=== PATIENT | female | born 1990 | race Caucasian/White ===

== ENCOUNTER → 2016-06-20 | Outpatient (CLI) | payer BC ==
[~2016-06-20] MED LIST: ACET-1256 PO; ACET-749 PO; ALBUAER19 INH; PRENTAB26 PO; VNTHFA/IN INH
[2016-06-20 18:13] LABS: URINE APPEARANCE CLEAR (CLEAR); URINE BILIRUBIN NEG (NEG); URINE COLOR YELLOW; URINE NITRITE NEG (NEG); URINE PH 6.5 (4.5-7.5); URINE SPECIFIC GRAVITY 1.004 (1.000-1.030); UROBILINOGEN NEG (NEG)
[2016-06-20 18:18] LABS: MANUAL MICROSCOPIC REQUIRED? NO; REVIEW REQ? NO
== END | disposition home or self-care (01) ==
LOC: C.LABSPEC 17:51
PROVIDERS: ATTEND Obstetrics & Gynecology
DX: Z34.90 Encounter for supervision of normal pregnancy, unspecified, unspecified trimester (principal)

== ENCOUNTER → 2016-06-28 | Outpatient (CLI) | payer BC ==
[2016-07-02 08:39] LABS: CHLAMYDIA TRACH RNA*** NOT DETECTED (NOT DETECTED); GC (NEIS GONORRHOEAE)RNA** NOT DETECTED (NOT DETECTED)
== END | disposition home or self-care (01) ==
LOC: C.LABSPEC 17:50
PROVIDERS: ATTEND Obstetrics & Gynecology
DX: Z34.90 Encounter for supervision of normal pregnancy, unspecified, unspecified trimester (principal)

== ENCOUNTER → 2016-06-28 | Outpatient (CLI) | payer BC ==
[2016-06-28 17:15] LABS: BASO % 0.2 %; BASO ABS # 0.02 K/uL (0-0.2); COMPLETE YES; EOS % 2.4 %; HEMATOCRIT 37.6 % (37-47); IG% 0.2 %; LYMPH % 25.6 %; LYMPH ABS # 2.31 K/uL (1.2-3.4); MEAN CELL VOLUME 87.9 fL (80-100); MEAN CORPUSCULAR HEMOGLOBIN 31.5 pg (25-34); MEAN CORPUSCULAR HGB CONC 35.9 g/dl (32-36); MEAN PLATELET VOLUME 9.8 fL (7.4-10.4); MONO % 5.2 %; NEUT % 66.4 %; PLATELET COUNT 207 K/uL (130-400); RED BLOOD COUNT 4.28 M/uL (4.2-5.4); WHITE BLOOD COUNT 9.04 K/uL (4.8-10.8)
== END | disposition home or self-care (01) ==
LOC: C.LAB1850 16:26
PROVIDERS: ATTEND Obstetrics & Gynecology
DX: Z34.81 Encounter for supervision of other normal pregnancy, first trimester (principal)

== ENCOUNTER → 2016-08-28 | Outpatient (CLI) | payer BC ==
[~2016-08-28] MED LIST changes: -ALBUAER19 INH
[2016-08-28 09:41] LABS: BASO % 0.3 %; BASO ABS # 0.02 K/uL (0-0.2); COMPLETE YES; EOS % 5.7 %; HEMATOCRIT 37.4 % (37-47); IG% 0.1 %; LYMPH % 29.6 %; LYMPH ABS # 2.12 K/uL (1.2-3.4); MEAN CORPUSCULAR HEMOGLOBIN 29.8 pg (25-34); MEAN CORPUSCULAR HGB CONC 33.4 g/dl (32-36); MEAN PLATELET VOLUME 9.6 fL (7.4-10.4); MONO % 6.3 %; PLATELET COUNT 206 K/uL (130-400); WHITE BLOOD COUNT 7.17 K/uL (4.8-10.8)
== END | disposition home or self-care (01) ==
LOC: C.LAB1850 07:51
PROVIDERS: ATTEND Internal Medicine
DX: D72.829 Elevated white blood cell count, unspecified (principal)

== ENCOUNTER → 2016-12-24 | Outpatient (CLI) | payer BC ==
[2016-12-24 12:07] LABS: MANUAL MICROSCOPIC REQUIRED? NO; REVIEW REQ? NO; URINE APPEARANCE CLEAR (CLEAR); URINE BILIRUBIN NEG (NEG); URINE COLOR YELLOW; URINE NITRITE NEG (NEG); URINE PH 5.5 (4.5-7.5); URINE SPECIFIC GRAVITY 1.022 (1.000-1.030); UROBILINOGEN NEG (NEG)
== END | disposition home or self-care (01) ==
LOC: C.LABSPEC 11:02
PROVIDERS: ATTEND Obstetrics & Gynecology
DX: O09.291 Supervision of pregnancy with other poor reproductive or obstetric history, first trimester (principal)

== ENCOUNTER → 2017-01-09 | Outpatient (CLI) | payer BC ==
[2017-01-09 12:50] LABS: BASO % 0.3 %; BASO ABS # 0.02 K/uL (0-0.2); COMPLETE YES; EOS % 1.9 %; HEMATOCRIT 36.2 % (37-47); IG% 0.1 %; LYMPH % 24.5 %; LYMPH ABS # 1.67 K/uL (1.2-3.4); MEAN CELL VOLUME 86.4 fL (80-100); MEAN CORPUSCULAR HEMOGLOBIN 29.6 pg (25-34); MEAN CORPUSCULAR HGB CONC 34.3 g/dl (32-36); MEAN PLATELET VOLUME 9.7 fL (7.4-10.4); MONO % 5.6 %; NEUT % 67.6 %; PLATELET COUNT 198 K/uL (130-400); RED BLOOD COUNT 4.19 M/uL (4.2-5.4); WHITE BLOOD COUNT 6.82 K/uL (4.8-10.8)
[2017-01-12 01:39] LABS: CHLAMYDIA TRACH RNA*** NOT DETECTED (NOT DETECTED); GC (NEIS GONORRHOEAE)RNA** NOT DETECTED (NOT DETECTED)
== END | disposition home or self-care (01) ==
LOC: C.LAB1850 11:37
PROVIDERS: ATTEND Obstetrics & Gynecology
DX: O09.291 Supervision of pregnancy with other poor reproductive or obstetric history, first trimester (principal)

== ENCOUNTER → 2017-05-20 | Outpatient (CLI) | payer BC ==
[~2017-05-20] MED LIST changes: -ACET-749 PO
[2017-05-20 12:05] LABS: HEMATOCRIT 33.5 % (37-47); HEMOGLOBIN 11.5 g/dL (12.0-16.0)
== END | disposition home or self-care (01) ==
LOC: C.LAB1850 10:04
PROVIDERS: ATTEND Obstetrics & Gynecology
DX: O09.293 Supervision of pregnancy with other poor reproductive or obstetric history, third trimester (principal)

== ENCOUNTER → 2017-07-26 | Outpatient (CLI) | payer BC ==
[~2017-07-26] MED LIST changes: +CEPH500C PO
== END ==
LOC: C.LABSPEC 17:34
PROVIDERS: ATTEND Obstetrics & Gynecology
DX: O09.293 Supervision of pregnancy with other poor reproductive or obstetric history, third trimester (principal); Z3A.00 Weeks of gestation of pregnancy not specified

== ENCOUNTER 2017-08-03 07:56 | Emergency (ER) | payer BC ==
[~2017-08-03] VITALS: Ht 170.2 cm; Wt 99.3 kg
[~2017-08-03 07:56] MED LIST changes: -CEPH500C PO
[2017-08-03 07:59] VITALS: Ht 170.2 cm; Wt 99.3 kg
[2017-08-03] MEDS ORDERED: ACETAMINOPHEN 500 MG TAB PO STA (08:40)
[2017-08-03] MEDS ORDERED: SODIUM CHLORIDE 0.9% 1000ML 1,000 ML IV STA (08:40)
[2017-08-03] MEDS ORDERED: CEFTRIAXONE SOD INJ 1 GM ADDVIAL IV STA (08:40)
[2017-08-03 08:57] LABS: BASO % 0.1 %; BASO ABS # 0.01 K/uL (0-0.2); EOS % 0.1 %; EOS ABS # 0.01 K/uL (0-0.5); HEMATOCRIT 31.9 % (37-47); HEMOGLOBIN 10.8 g/dL (12.0-16.0); IG# 0.08 K/uL (0.00-0.02); LYMPH % 2.7 %; LYMPH ABS # 0.52 K/uL (1.2-3.4); MEAN CELL VOLUME 85.8 fL (80-100); MEAN CORPUSCULAR HGB CONC 33.9 g/dl (32-36); MEAN PLATELET VOLUME 9.4 fL (7.4-10.4); MONO % 2.8 %; MONO ABS # 0.54 K/uL (0.11-0.59); NEUT % 93.9 %; PLATELET COUNT 135 K/uL (130-400); RED CELL DISTRIBUTION WIDTH CV 13.9 % (11.5-14.5); RED CELL DISTRIBUTION WIDTH SD 43.3 fL (36.4-46.3); WHITE BLOOD COUNT 19.16 K/uL (4.8-10.8)
[2017-08-03 09:14] LABS: CALCIUM 8.6 mg/dl (8.5-10.1); CREATININE 0.78 mg/dl (0.60-1.20); POTASSIUM 3.6 mmol/L (3.5-5.1)
--- NOTE | 2017-08-03 09:29 | DIAGNOSTIC IMAGING REPORT ---
L VENOUS DOPP LOWER EXT UNILAT CLINICAL HISTORY: pain and swelling, 37 wks preg. ?dvt pain. Edema. TECHNIQUE: Venous Doppler COMPARISON STUDY: None FINDINGS: Normal venous Doppler. No evidence for deep venous thrombosis. Several benign-appearing reactive nodes of the left inguinal region. IMPRESSION: Normal venous Doppler. Several benign-appearing reactive nodes of the left inguinal region. The above report was generated using voice recognition software. It may contain grammatical, syntax or spelling errors. Electronically signed by: Sean Thorpe M.D. 08/03/2017 9:28 AM Dictated Date/Time: 08/03/2017 9:28 AM
[2017-08-03 10:46] VITALS: TEMP 36.8
[2017-08-03] MEDS ORDERED: CEPH500C PO (10:47)
[2017-08-03 11:01] VITALS: BP 106/51; PULSE 100; O2SAT 96
--- NOTE | 2017-08-03 12:18 | EMERGENCY ROOM VISIT NOTE ---
History Report prepared by Mark: Demond Medina Under the Supervision of: Dr. Jatinder Vaz M.D. First contact with patient: 08:04 Chief Complaint: LEG PAIN,LEG INJURY Stated Complaint: PAIN IN LEFT LEG 37 WEEKS *CALLED L&D* History of Present Illness The patient is a 27 year old female who presents to the Emergency Room with complaints of constant left leg pain that began yesterday. Patient states that she is 37 weeks and denies any past problems with the . Patient states that she "may have side-swiped one of her potted plants last night" but does not remember. She adds that she has had fevers, chills, stomach aches, and nausea. She states that she has some mild shortness of breath and feels "swollen all over" since her has progressed. She adds that she has been urinating more frequently recently. She adds that she has a migraine that is not typical with her , but she has had these before. Patient states that she had a history of migraines in high school. She adds that she had a concussion in high school. Patient states that she took her this morning. She states her OB group is [facility]. Patient states that her family doctor is Dr. Patel. She states that this is her 3rd . She states that there was no problems with the first . 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 Pt denies LOC, diaphoresis, visual changes, neck pain, chest pain, vomiting, back pain, melena, hematochezia, numbness, weakness, lymphadenopathy, rash, or other complaints. Source of History: patient Onset: Yesterday Position: leg (left) Timing: constant Associated Symptoms: + fevers, + chills, + headache, + SOB, + nausea Review of Systems See HPI for pertinent positives and negatives. A total of ten systems were reviewed and were otherwise negative. Past Medical & Surgical Medical Problems: (1) Bronchitis (2) Miscarriage Surgical Problems: (1) [place] teeth extracted Family History Diabetes mellitus Heart disease Social History Smoking Status: Never Smoker Marital Status: Housing Status: lives with significant other Occupation Status: employed Current/Historical Medications Scheduled Cephalexin Monohydrate (Keflex), 500 MG PO QID Multivit/Min/Iron/Fol Ac/Pren ( Vitamin), 1 TAB PO DAILY Allergies Coded Allergies: No Known Allergies (Unverified , 08/03/17) Physical Exam Vital Signs Date Time Temp Pulse Resp B/P (MAP) Pulse Ox O2 Delivery O2 Flow Rate FiO2 08/03/17 11:01 100 18 106/51 96 08/03/17 10:46 36.8 08/03/17 10:06 108 18 104/60 97 Room Air 08/03/17 07:59 38.0 118 18 113/69 95 Room Air Physical Exam GENERAL: Awake, alert, well-appearing, in no distress HENT: Normocephalic, atraumatic. Oropharynx unremarkable. EYES: Normal conjunctiva. Sclera non-icteric. NECK: Supple. No nuchal rigidity. FROM. No masses. RESPIRATORY: Clear to auscultation. No wheezes. No rales. Normal respiratory effort. CARDIAC: Tachycardic rate. Normal rhythm. No murmurs. No rubs. Extremities warm and well perfused. Pulses equal. No JVD. GI: Soft, gravid. No tenderness to palpation. No rebound or guarding. No masses. RECTAL: Deferred. MUSCULOSKELETAL: Atraumatic. Chest examination reveals no tenderness. The back is symmetrical on inspection without obvious abnormality. There is no CVA tenderness to palpation. No joint edema. LOWER EXTREMITIES: Large erythematous area of 2/3 anterior left jean. Warm and tender, concerning for cellulitis. Calves are equal size bilaterally and non- tender. No edema. No discoloration. NEURO: Normal sensorium. No sensory or motor deficits noted. SKIN: No rash or jaundice noted. Medical Decision & Procedures ER Provider Diagnostic Interpretation: Radiology results as stated below per my review and radiologist interpretation: L VENOUS DOPP LOWER EXT UNILAT CLINICAL HISTORY: pain and swelling, 37 wks preg. ?dvt pain. Edema. TECHNIQUE: Venous Doppler COMPARISON STUDY: None FINDINGS: Normal venous Doppler. No evidence for deep venous thrombosis. Several benign-appearing reactive nodes of the left inguinal region. IMPRESSION: Normal venous Doppler. Several benign-appearing reactive nodes of the left inguinal region. The above report was generated using voice recognition software. It may contain grammatical, syntax or spelling errors. Electronically signed by: Sean Thorpe M.D. 08/03/2017 9:28 AM Laboratory Results 08/03/17 08:45 Red Blood Count 3.72, Mean Corpuscular Volume 85.8, Mean Corpuscular Hemoglobin 29.0, Mean Corpuscular Hemoglobin Concent 33.9, Mean Platelet Volume 9.4, Neutrophils (%) (Auto) 93.9, Lymphocytes (%) (Auto) 2.7, Monocytes (%) (Auto) 2.8, Eosinophils (%) (Auto) 0.1, Basophils (%) (Auto) 0.1, Neutrophils # (Auto) 18.00, Lymphocytes # (Auto) 0.52, Monocytes # (Auto) 0.54, Eosinophils # (Auto) 0.01, Basophils # (Auto) 0.01 08/03/17 08:45 Test 08/03/17 08:45 08/03/17 09:50 White Blood Count 19.16 K/uL (4.8-10.8) Red Blood Count 3.72 M/uL (4.2-5.4) Hemoglobin 10.8 g/dL (12.0-16.0) Hematocrit 31.9 % (37-47) Mean Corpuscular Volume 85.8 fL (80-100) Mean Corpuscular Hemoglobin 29.0 pg (25-34) Mean Corpuscular Hemoglobin Concent 33.9 g/dl (32-36) Platelet Count 135 K/uL (130-400) Mean Platelet Volume 9.4 fL (7.4-10.4) Neutrophils (%) (Auto) 93.9 % Lymphocytes (%) (Auto) 2.7 % Monocytes (%) (Auto) 2.8 % Eosinophils (%) (Auto) 0.1 % Basophils (%) (Auto) 0.1 % Neutrophils # (Auto) 18.00 K/uL (1.4-6.5) Lymphocytes # (Auto) 0.52 K/uL (1.2-3.4) Monocytes # (Auto) 0.54 K/uL (0.11-0.59) Eosinophils # (Auto) 0.01 K/uL (0-0.5) Basophils # (Auto) 0.01 K/uL (0-0.2) RDW Standard Deviation 43.3 fL (36.4-46.3) RDW Coefficient of Variation 13.9 % (11.5-14.5) Immature Granulocyte % (Auto) 0.4 % Immature Granulocyte # (Auto) 0.08 K/uL (0.00-0.02) Anion Gap 10.0 mmol/L (3-11) Est Creatinine Clear Calc Drug Dose 132.3 ml/min Estimated GFR () 121.6 Estimated GFR (Non- 104.9 BUN/Creatinine Ratio 7.2 (10-20) Calcium Level 8.6 mg/dl (8.5-10.1) Urine Color YELLOW Urine Appearance CLEAR (CLEAR) Urine pH 7.5 (4.5-7.5) Urine Specific [place] 1.014 (1.000-1.030) Urine Protein NEG (NEG) Urine Glucose (UA) 2+ (NEG) Urine Ketones TRACE (NEG) Urine Occult Blood NEG (NEG) Urine Nitrite NEG (NEG) Urine Bilirubin NEG (NEG) Urine Urobilinogen NEG (NEG) Urine Leukocyte Esterase NEG (NEG) Laboratory results reviewed by me Medications Administered Medications (Trade) Dose Ordered Sig/Ravi Route Start Time Stop Time Status Last Admin Dose Admin Acetaminophen (Tylenol Tab) 1,000 mg NOW STAT PO 08/03/17 08:40 08/03/17 08:42 DC 08/03/17 08:52 1,000 MG Ceftriaxone Sodium (Rocephin Inj) 1 gm NOW STAT IV 08/03/17 08:40 08/03/17 08:42 DC 08/03/17 08:53 1 GM Sodium Chloride 1,000 ml @ 999 mls/hr Q1H1M STAT IV 08/03/17 08:40 08/03/17 09:40 DC 08/03/17 08:53 999 MLS/HR ED Course 0805: The patient was evaluated in room A2. A complete history and physical exam was performed. 0840: Sodium Chloride 1000 ml @ 999 mls/hr IV, Rocephin Inj 1 gm IV, and Tylenol Tab 1000mg PO 1016: I reassessed the patient. She has a temperature of 36.9 and is resting comfortably. 1102: I reevaluated the patient. I informed her to follow-up with Dr. Lee in his office. Discussed results and discharge instructions. She verbalized understanding and agreement. The patient is ready for discharge. Medical Decision Prior records reviewed and summarized as above. Triage Nursing notes reviewed and agree them. Additional history obtained from the family. The patient's history was concerning for swelling and redness of the skin. Differential diagnosis: Etiologies such as cellulitis, DVT, necrotizing fasciitis, abscess, MRSA infection, dermatitis, drug eruption, as well as others were entertained.. Physical examination: The physical examination was consistent with cellulitis. No crepitus. No fluctuance. ER treatment provided: IV normal saline Oral Tylenol IV Rocephin On reassessment the patient felt better. Fever resolved. Diagnostics interpreted by me: The labs revealed a leukocytosis on CBC. Chemistry panel unremarkable. Urinalysis negative. Imaging studies: Ultrasound as above. The patient has a cellulitis with some upper leg reactive lymph nodes. Consultation: A consultation was placed with the [facility] CR[facility] TENDER on-call, Dr. Lee. The case was discussed. The patient will be followed up in the office. This appears to be isolated cellulitis. By the evaluation outlined above emergent etiologies such as abscess, necrotizing fasciitis, DVT, as well as others were deemed relatively unlikely. The patient and were informed about the findings as listed above. All questions were answered and they were very pleased with the treatment. Return instructions were outlined and the patient was discharged in stable condition. Outpatient prescription management: Keflex Referral: The patient was referred back to her primary CROSSING TENDER next week for a recheck of the current condition. Medication Reconcilliation Current Medication List: was personally reviewed by me Blood Pressure Screening Patient's blood pressure: Normal blood pressure Blood pressure disposition: Did not require urgent referral Consults Time Called: 1016 Consulting Physician: Dr. Jesus Christian Hospitalist Returned Call: [phone] Discussed the patient's case. The patient will be evaluated for further treatment and disposition. Impression Primary Impression: Left leg cellulitis Scribe Attestation The scribe's documentation has been prepared under my direction and personally reviewed by me in its entirety. I confirm that the note above accurately reflects all work, treatment, procedures, and medical decision making performed by me. Departure Information Dispostion Home / Self-Care Prescriptions Cephalexin Monohydrate (Keflex) 500 Mg Cap 500 MG PO QID, #40 CAP Prov: Jatinder Vaz MD 08/03/17 Referrals RV. Momin MD (PCP) Forms HOME CARE DOCUMENTATION FORM, IMPORTANT VISIT INFORMATION Patient Instructions My [facility] Additional Instructions CELLULITIS INSTRUCTIONS: Cephalexin(Keflex) 500mg: Take one pill four times daily for 10 days for your skin infection. All antibiotics can cause diarrhea. If this occurs and you feel worse or it does not resolve in 1-2 days follow up with your doctor or return to the Emergency Department as this could be signs of serious underlying problems. Any medication can cause an allergic reaction, stop the pills immediately and return to the ER for rash, hives, breathing difficulties, or swelling. Acetaminophen(Tylenol) may be used for fever or pain. Use 1000mg every six hours as needed. Avoid using more than 4000mg in a 24 hour period. Warm compresses to the affected area 4 times daily for 15-20 minutes. Rest and drink plenty of fluids. Continue current medications. Return to the ER for severe pain, persistent fevers, spreading redness, or any worsening of your condition. Follow up with your CROSSING TENDER office first thing this week for a recheck of the current condition.
== END 2017-08-03 11:02 | disposition home or self-care (01) ==
LOC: C.EDB 07:58 → C.EDA 11:02
DX: O99.713 Diseases of the skin and subcutaneous tissue complicating pregnancy, third trimester (principal); L03.116 Cellulitis of left lower limb; O26.893 Other specified pregnancy related conditions, third trimester; Z3A.37 37 weeks gestation of pregnancy

== ENCOUNTER 2017-08-25 10:14 | Inpatient (IN) | payer BC ==
[~2017-08-25] VITALS: Ht 170.2 cm; Wt 100.5 kg
[~2017-08-25 10:14] MED LIST changes: -ACET-1256 PO; -VNTHFA/IN INH
[2017-08-25 20:06] VITALS: BMI 34.5
[2017-08-25] MEDS ORDERED: BCTCR/30 EXT (20:06)
[2017-08-29] MEDS ORDERED: LACTATED RINGER'S 1000ML 1,000 ML IV PRN (08:00)
[2017-08-29] MEDS ORDERED: LACTATED RINGER'S 1000ML 1,000 ML IV SCH (08:00)
[2017-08-29] MEDS ORDERED: LACTATED RINGER'S 1000ML 500 ML IV PRN ×2 (08:03→08:41)
[2017-08-29] MEDS ORDERED: OXYTOCIN 30 UNITS/500ML NSS IV PRN ×3 (08:15→17:15)
[2017-08-29 08:28] LABS: HEMOGLOBIN 11.2 g/dL (12.0-16.0); MEAN CELL VOLUME 85.3 fL (80-100); MEAN CORPUSCULAR HEMOGLOBIN 28.9 pg (25-34); MEAN CORPUSCULAR HGB CONC 33.9 g/dl (32-36); PLATELET COUNT 163 K/uL (130-400); RED CELL DISTRIBUTION WIDTH CV 14.2 % (11.5-14.5); RED CELL DISTRIBUTION WIDTH SD 43.6 fL (36.4-46.3); WHITE BLOOD COUNT 12.15 K/uL (4.8-10.8)
[2017-08-29 09:58] VITALS: Ht 170.2 cm; Wt 100.5 kg
[2017-08-29] MEDS ORDERED: LANOLIN OINT EXT PRN (17:15)
[2017-08-29] MEDS ORDERED: SUPERCREAM 0.870 % 15GM JAR EXT PRN (17:15)
[2017-08-29] MEDS ORDERED: OXYCODONE/ACETAMINOPHEN 5-325 TAB PO PRN (17:15)
[2017-08-29] MEDS ORDERED: BENZOCAINE 20% AER SPR 82.5 GM CAN EXT PRN (17:15)
[2017-08-29] MEDS ORDERED: ACETAMINOPHEN 325 MG TAB PO PRN (17:15)
--- NOTE | 2017-08-29 17:17 | DELIVERY SUMMARY ---
DATE OF OPERATION: 08/29/2017 The patient is a 27-year-old 3 para 1-0-1-1 white female EDC of 08/19/2017 who presents at 41 1/2 weeks for induction of labor because of postdates. She received a cervical balloon for dilation on the evening of 08/28/17. She presented to labor and delivery on the morning of this admission and was noted to be 3-4 cm dilated. Pitocin augmentation was begun. She had ruptured membranes for clear fluid at approximately 4 cm dilated. She then progressed to full dilation and pushed effectively over intact perineum for delivery of a viable male . Mouth and nasopharynx were suctioned on the perineum. The rest of the infant was delivered without difficulty and placed on the mother's abdomen for further attention and warming. There was vigorous crying and the infant was moving all four limbs. The cord was then clamped after approximately 30 seconds. The placenta was expressed intact with a 3-vessel cord. A second degree perineal laceration was repaired with 3-0 chromic in the usual fashion. Estimated blood loss was 300 cc. Mother and infant are doing well after delivery. This was an unmedicated . I attest to the content of the Intraoperative Record and any orders documented therein. Any exception s are noted below.
[2017-08-29] MEDS: DOCUSATE SODIUM 100 MG CAP PO SCH (20:08)
[2017-08-29] MEDS: IBUPROFEN 600 MG TAB PO PRN (20:08)
[2017-08-29 20:15] VITALS: BP 117/75; PULSE 78; TEMP 37
[2017-08-29 23:30] VITALS: BP 110/72; PULSE 76; TEMP 36.8
[2017-08-29] MEDS: MUPIROCIN 2% OINT 22 GM TUBE EXT SCH ×2 (23:43→23:50)
[2017-08-30 03:25] VITALS: BP 128/76; PULSE 72; TEMP 36.9
[2017-08-30] MEDS: IBUPROFEN 600 MG TAB PO PRN ×3 (05:08→21:27)
[2017-08-30 05:45] LABS: HEMATOCRIT 30.1 % (37-47); HEMOGLOBIN 10.1 g/dL (12.0-16.0)
[2017-08-30] MEDS ORDERED: ALBUTEROL HFA 8 GM INHALER INH PRN (06:30)
--- NOTE | 2017-08-30 06:42 | Progress Note ---
Subjective August 30, 2017. Subjective conversation w/ patient Ambulation: ambulating normally Voiding: no voiding problems Diet Tolerance: Regular Diet Lochia: Moderate Feeding Type: Breast Feeding Pain: Abdominal cramps w/ & pelvic pain Review of Systems Constitutional: No fever, No chills Respiratory: + cough, + wheezing Cardiac: No chest pain Abdomen: No nausea, No vomiting Objective Vital Signs Date Time Temp Pulse Resp B/P (MAP) Pulse Ox O2 Delivery O2 Flow Rate FiO2 08/30/17 03:25 36.9 72 18 128/76 (93) Room Air 08/29/17 23:30 36.8 76 18 110/72 (85) Room Air 08/29/17 23:30 Room Air 08/29/17 20:15 37.0 78 18 117/75 (89) Room Air Physical Exam General Appearance: WELL-APPEARING, WD/WN, NO APPARENT DISTRESS Abdomen: soft Fundus: Firm, Non-Tender, Relation to Umbilicus (at u) Extremities: no calf tenderness, + pedal edema Laboratory Results Last 24 Hours Test 08/29/17 08:12 08/30/17 05:30 White Blood Count 12.15 K/uL Red Blood Count 3.87 M/uL Hemoglobin 11.2 g/dL 10.1 g/dL Hematocrit 33.0 % 30.1 % Mean Corpuscular Volume 85.3 fL Mean Corpuscular Hemoglobin 28.9 pg Mean Corpuscular Hemoglobin Concent 33.9 g/dl RDW Standard Deviation 43.6 fL RDW Coefficient of Variation 14.2 % Platelet Count 163 K/uL Mean Platelet Volume 10.0 fL Assessment and Plan Problem List Medical Problems: (1) Complete Status: Acute Post- Day#: 1 Continue Routine Care: Resident Physician Supervision Note: I was present with Dr. Cuevas during the history and exam. I discussed the case with the resident and agree with the findings and plan as documented in the note. Any exceptions or clarifications are listed here: [None] Documented By: Brisa Hi 27F s/p NVD day 1 - A+, Rubella Immune, GBS -ve - pt doing well clinically - Vital signs reviewed and WNL - Hemoglobin reviewed. 11.2 -> 10.1 - Encourage ambulation, monitor and control pain with Motrin PRN - pt with history of asthma and complaining of upper resp tract infection symptoms & wheezing - will administer albuterol inhaler & refill home prescription Resident Tracking Resident Involvement: Resident Care Provided Care Provided: OB Delivery
[2017-08-30] MEDS ORDERED: PRVHFAIN INH (06:46)
--- NOTE | 2017-08-30 06:47 | Discharge Instructions ---
Discharge Instructions Date of Service August 30, 2017. Admission Reason for Admission: Induction Discharge Discharge Diagnosis / Problem: Vaginal Delivery Discharge Goals Goal(s): Routine recovery after delivery Medications Continue Dispensed Medications: supercream, dermaplast, tucks, inhaler, lansinoh Activity Recommendations Activity Limitations: per Instructions/Follow-up section . Instructions / Follow-Up Instructions / Follow-Up ACTIVITY RECOMMENDATIONS: * Gradual return to full activity over the next 2-3 weeks. * No lifting - nothing heavier than baby over the next 2-3 weeks. * Do not engage in vigorous exercise, sexual activity or sports until cleared by your physician. * Do not drive or operate any motorized equipment until cleared by your physician. * You may shower/bathe daily. MEDICATIONS: For discomfort or pain, you may use Acetaminophen (Tylenol), Ibuprofen (Advil), or Naproxen (Aleve) following the package directions. For constipation you may use Colace following the package directions. BREAST CARE: If you are not breast feeding: * Wear a supportive bra 24 hours a day for one to two weeks. * Avoid stimulating your breasts and nipples as much as possible during the first few weeks after delivery. * When taking a shower, have the warm water hit your back, not breasts. * When your breasts feel full, apply ice packs. Usually three to four times a day helps ease the discomfort. * Take a mild pain medication (Tylenol / Motrin) when you are uncomfortable. If breast feeding: * Use breast milk to lubricate nipples. Lansinoh cream may be used for sore nipples. You do not need to remove cream prior to breast feeding. If using a different brand of cream, check the label for directions regarding removal of cream prior to nursing. * Wear a supportive bra. * If having problems with breasts or breast feeding, call a wireless sales consultant or your health care provider. EPISIOTOMY CARE: After delivery, if you have an episiotomy (stitches), the following steps will ease discomfort and aid healing. * For the first 24 hours after delivery, place ice packs next to your episiotomy to help reduce swelling. * After the first 24 hour-period, sitz baths, either portable or in the tub, are suggested. A shower with a shower arm sprayed over the episiotomy may be comforting. * Kristen care should be done after each voiding and bowel movement. Squirt warm water from a plastic bottle over the perineum (region of the body between the anus and urinary opening) and pat dry. * Use Dermoplast to ease discomfort. Shake container. [place] directly over the episiotomy. Place a Tucks on a clean sanitary pad next to your episiotomy. SPECIAL CARE INSTRUCTIONS: When you are discharged from the hospital, it is important for you to follow the instructions listed below: * During the first week at home, you should be able to care for yourself and your baby. In addition, the usual light household activities are encouraged. * Limit your activities to the way you feel. Do not try to clean the house or move furniture. Be sensible. * If you actively engage in sports and have done so up until the time of your delivery, you may resume these activities as soon as you feel able. This may take up to one month or even longer. Use good judgment. * Continue to take your vitamins for at least six weeks after the of your baby. * Your diet need not be limited unless you were on a special diet before your delivery. Breast-feeding mothers need around 2500 calories per day and at least 64-80 ounces of fluid per day (8 to 10 glasses). * You should eat foods from the four major food groups. Crash diets or fad diets are to be avoided. Eating lean meats, fresh fruits and vegetables, low-fat dairy products, high fiber foods and a regular exercise program, will help you get back to your pre- weight without putting your health at risk. * Constipation is sometimes a problem after delivery. Take a mild laxative as needed. If breast feeding, Milk of Magnesia is acceptable to use. You may use a suppository or Fleets enema if no episiotomy. * A daily shower or tub bath is suggested. Be sure to thoroughly and gently dry the perineum. * A bloody vaginal discharge will usually continue until around four weeks post . A small amount of bleeding may continue for as long as six weeks. Vaginal discharge changes from the bright red bleeding after delivery to pink then brownish and finally yellowish-pink before becoming white and disappearing. * Bleeding may increase with activity. Your first period may come in 4-8 weeks. If you are breast feeding, your period may be delayed even longer. * [place] (sex) can begin whenever both you and your partner feel comfortable and do not have any form of genital infection. It is recommended that you wait at least six weeks for internal and external healing to occur. If you have questions, please talk to your health care practitioner. A condom should be used to prevent infection and . * Foreplay, gentle intercourse and lubrication is very important the first several times to prevent pain. A water-based lubricant such as K-Y jelly or Astroglide may be used. * If you have RH negative blood and your baby is RH positive, you will receive RHOGAM by injection prior to discharge. The nurse will give you a card to keep with you that has the date and place that you received RHOGAM after delivery. * During your care, you had a Rubella screen done to check for the presence of rubella antibodies in your blood. If your test was negative, you will receive a Rubella vaccine prior to discharge. This vaccine may cause a fever, soreness at the injection site and flu-like symptoms. If these symptoms persist, notify your health care practitioner. is not advised for one month after a Rubella vaccine. * Verbalizes understanding of car seat law as reviewed with patient nursing. * Car Seat hand-out given and reviewed with patient by nursing. * Shaken baby information reviewed with patient by nursing. Call you doctor if: * Heavy bleeding (saturating several pads an hour) or passing clots the size of your fist. * A fever >101 degrees F (38.3 degrees C) on two occasions four hours apart and /or chills. * Unusual pain in the pelvic or vaginal areas. * "Baby Blues" lasting longer than two weeks. If you have any questions or concerns, call your health care practitioner at . FOLLOW UP VISIT: * Please call the office at to schedule a 6 week examination. It is important you keep this appointment. It is important for you to make arrangements for either yearly or twice yearly check-ups thereafter. Current Hospital Diet Patient's current hospital diet: Regular OB Diet Discharge Diet Recommended Diet: Regular Diet Pending Studies Studies pending at discharge: no Medical Emergencies . Who to Call and When: Medical Emergencies: If at any time you feel your situation is an emergency, please call 911 immediately. . Non-Emergent Contact Non-Emergency issues call your: Primary Care Provider . . "Provider Documentation" section prepared by Brie Duran. .
[2017-08-30 07:45] VITALS: BP 114/71; PULSE 79; TEMP 36.6; O2SAT 98
[2017-08-30] MEDS: PRENATAL VITAMIN TAB PO SCH (08:30)
[2017-08-30] MEDS: DOCUSATE SODIUM 100 MG CAP PO SCH ×2 (08:30→19:47)
[2017-08-30] MEDS: MUPIROCIN 2% OINT 22 GM TUBE EXT SCH ×2 (08:31→19:47)
[2017-08-30 11:10] VITALS: BP 120/60; PULSE 89; TEMP 36.5; O2SAT 97
[2017-08-30 16:00] VITALS: BP 104/65; PULSE 87; TEMP 36.6; O2SAT 97
[2017-08-30] MEDS ORDERED: BISACODYL 5 MG TABEC PO SCH (20:00)
[2017-08-30 23:25] VITALS: BP 119/76; PULSE 75; TEMP 36.5; O2SAT 97
[2017-08-31] MEDS: IBUPROFEN 600 MG TAB PO PRN ×2 (03:59→14:56)
--- NOTE | 2017-08-31 07:45 | Progress Note ---
Subjective August 31, 2017. Subjective conversation w/ patient, physical exam, lab review Ambulation: ambulating normally Voiding: no voiding problems Passing Gas: Yes Diet Tolerance: Regular Diet Lochia: Small Feeding Type: Breast Feeding Objective Vital Signs Date Time Temp Pulse Resp B/P (MAP) Pulse Ox O2 Delivery O2 Flow Rate FiO2 08/30/17 23:25 36.5 75 16 119/76 (90) 97 Room Air 08/30/17 23:25 Room Air 08/30/17 16:00 36.6 87 20 104/65 (78) 97 Room Air 08/30/17 16:00 97 Room Air 08/30/17 11:10 36.5 89 16 120/60 (80) 97 Room Air 08/30/17 07:45 36.6 79 16 114/71 (85) 98 Room Air 08/30/17 07:45 Room Air Physical Exam General Appearance: WELL-APPEARING Abdomen: non tender Fundus: Firm Extremities: no calf tenderness Assessment and Plan Problem List Medical Problems: (1) Complete Status: Acute Post- Day#: 2 Continue Routine Care: day #2 meets discharge criteria
[2017-08-31 08:00] VITALS: BP 128/72; PULSE 74; TEMP 36.6
[2017-08-31] MEDS: DOCUSATE SODIUM 100 MG CAP PO SCH (09:05)
[2017-08-31] MEDS: PRENATAL VITAMIN TAB PO SCH (09:05)
[2017-08-31 15:50] VITALS: BP_DIAS 72; PULSE 74; TEMP 36.6
== END 2017-08-31 15:50 | disposition home or self-care (01) | DRG 775 ==
LOC: C.LD 19:15 → UNDOADMIN 19:15 → C.LD 08-29 07:58 → C.OBG 08-29 20:14
PROVIDERS: ADMIT Obstetrics & Gynecology; ATTEND Obstetrics & Gynecology
PROC: 0U7C7ZZ Dilation of Cervix, Via Natural or Artificial Opening (ICD-10-PCS; principal; 2017-08-28)
PROC: 0KQM0ZZ Repair Perineum Muscle, Open Approach (ICD-10-PCS; 2017-08-29)
PROC: 10E0XZZ Delivery of Products of Conception, External Approach (ICD-10-PCS; 2017-08-29)
DX: O48.0 Post-term pregnancy (principal); O70.1 Second degree perineal laceration during delivery; Z37.0 Single live birth; Z3A.41 41 weeks gestation of pregnancy

== ENCOUNTER 2025-03-10 16:45 | Inpatient (IN) ==
[2025-03-10] MEDS: PENICILLIN GK 6 MU in DEXTROSE 5% 250 ML IV STA (19:41)
[2025-03-10] MEDS: OXYTOCIN 30 UNITS/NSS 30 UNITS/500 ML BAG IV PRN (19:48)
[2025-03-10] MEDS: LACTATED RINGER'S 1,000 ML IV PRN (20:25)
[2025-03-10 23:05] LABS: Hematocrit (blood only) 32.2 % (37.0-47.0); Hemoglobin 10.8 g/dL (12.0-16.0); Mean Corpuscular Hemoglobin 28.4 pg (25.0-34.0); Mean Corpuscular Volume 84.7 fL (80.0-100.0); Platelet Count 207 K/uL (130-400); RDW Standard Deviation 40.9 fL (36.4-46.3); Red Blood Count 3.80 M/uL (4.20-5.40); White Blood Count 9.66 K/ul (4.8-10.8)
[2025-03-11] MEDS: PENICILLIN GK 3 MU in DEXTROSE 5% 100 ML IV PRN
--- NOTE | 2025-03-11 02:07 | History & Physical Report ---
Date of Service March 11, 2025 Assessment & Plan (1) Encounter for supervision of normal in multigravida: Plan: Begin induction of labor with pitocin. She does not desire epidural. Penicillin for GBS+ Admission and Anticipated Discharge Date Admission Date: March 10, 2025 History of Present Illness Chief Complaint: IOL Primary Care Provider: STUART PCP 35yo @ 41 06/12, admitted for IOL for postdates. Her had been complicated by GBS+ and breech presentation - however baby self-verted to cephalic prior to scheduled ECV. and Delivery Plans Neg Pap/HPV + at NOB *repeat pap in 1 year GBS positive - Treat in labor ECV followed by IOL on 03/[address] Chan. Default C/S scheduled 03/08/2025 w/[place] baby Breech Allergies Allergy/AdvReac Type Severity Reaction Status Date / Time cat dander Allergy Hives Verified 03/10/25 19:11 Home Medications Medication Instructions Recorded Confirmed Type vits no.124-ferrous fum 1 tab PO QAM 03/03/25 03/10/25 History 27 mg iron-folic acid 800 mcg tablet ( Vitamin) Patient History Medical History History of spontaneous Asthma well controlled - "cold induced" - no current inhaler Ventral hernia current - no current issues Hx of leukocytosis no current issues per patient Surgical History Hx of wisdom tooth extraction S/P fine needle aspiration right breast 2009- benign Family History Uncle Myocardial infarction paternal uncle Heart transplant recipient paternal uncle Father Diabetes Cardiac arrest Heart disease Myocardial infarction Stroke Brother Dyslipidemia Hyperlipidemia Sister Dyslipidemia Hyperlipidemia Mother Thyroid disorder Other No family history of adverse response to anesthesia Denies family history of Ovarian cancer Breast cancer Colorectal cancer Social History (Updated 03/05/25 @ 11:43 by Kate Borges RN) Smoking Status: Never smoker Second Hand Exposure: Yes (hx); Do You Dip or Chew Tobacco: No; Hx Alcohol Use: No (social) Hx Substance Use: No Preferred Language: Tajik Communication Ability: Effective Children'S Librarian Required: No Beliefs That Will Affect Care: None marital status: marital status details: Guillaume Young ([phone] Current Living Situation: Family Current Living Situation Comment: , 2 children current occupational status: unemployed current occupation: homemaker Other Information That Helps Us Care for You: No Feels Safe at Home: Yes Safety Concerns: Feels Safe At This Time Diet: regular Physical Activity Frequency: 3-4 Times per Week Seatbelt Use: always Assistive Devices: None Review of Systems All systems reviewed & are unremarkable except as noted in HPI & below Physical Exam Physical Exam: FHT Cat 1 Bonnie irreg SVE 1-2/50/-3 Cephalic by limited bedside ultrasound Constitutional: WD/WN, vitals as above Respiratory: normal respiratory effort, lungs clear to auscultation no respiratory distress Cardiovascular: Rate/Rhythm: regular rate and regular rhythm Gastrointestinal (Abdomen): Inspection/Auscultation: abdomen normal to inspe ction Percussion/Palpation: abdomen soft; abdomen nontender Gravid. No s/s chorio or abruption. Skin: no rashes, warm and dry Psychiatric: A+Ox3, euthymic affect Results & Data Vital Signs (Past 12 Hours) Vital Signs Temp Pulse Resp BP 03/11/25 01:24 64 124/72 03/11/25 00:24 63 18 126/75 03/10/25 23:23 16 03/10/25 23:23 16 03/10/25 23:23 67 03/10/25 23:23 129/80 03/10/25 22:23 16 03/10/25 22:23 16 03/10/25 22:23 63 03/10/25 22:23 123/71 03/10/25 21:37 18 03/10/25 21:37 18 03/10/25 21:37 82 03/10/25 21:37 131/80 03/10/25 21:20 77 03/10/25 21:20 153/92 H 03/10/25 19:53 18 03/10/25 19:53 18 03/10/25 19:53 75 03/10/25 19:53 131/79 03/10/25 19:12 36.5 C 18 03/10/25 18:50 82 129/80 Coding Level of Care Code None Diagnoses Encounter for supervision of normal in multigravida Z34.80
--- NOTE | 2025-03-11 07:33 | Labor Progress Brief Note ---
Date of Service March 11, 2025 Subjective FHT Cat 1 toco Q2 Feeling ctx, increase in pressure. 5/80/-1 AROM meconium-stained fluid. Continue labor, does not desire epidural. Assessment & Plan Admission and Anticipated Discharge Date Admission Date: March 10, 2025 Results & Data Vital Signs (Past 12 Hours) Vital Signs Temp Pulse Resp BP 03/11/25 07:24 80 137/77 03/11/25 07:01 22 03/11/25 07:01 36.9 C 22 03/11/25 06:24 81 142/68 H 03/11/25 05:23 71 20 129/81 03/11/25 04:23 68 127/80 03/11/25 04:15 18 03/11/25 04:15 36.6 C 18 03/11/25 03:23 66 16 118/75 03/11/25 02:49 36.7 C 03/11/25 02:24 77 125/74 03/11/25 01:24 64 124/72 03/11/25 00:24 63 18 126/75 03/10/25 23:23 36.7 C 03/10/25 23:23 16 03/10/25 23:23 16 03/10/25 23:23 67 03/10/25 23:23 129/80 03/10/25 22:23 16 03/10/25 22:23 16 03/10/25 22:23 63 03/10/25 22:23 123/71 03/10/25 21:37 18 03/10/25 21:37 18 03/10/25 21:37 82 03/10/25 21:37 131/80 03/10/25 21:20 77 03/10/25 21:20 153/92 H 03/10/25 19:53 18 03/10/25 19:53 18 03/10/25 19:53 75 03/10/25 19:53 131/79 Coding Level of Care Code None
--- NOTE | 2025-03-11 10:31 | Delivery Summary ---
Vaginal Delivery Summary Date of Service March 11, 2025 Vaginal Delivery Summary DIAGNOSES: 1. Easley intrauterine at 40w3d gestation. 2. Spontaneous onset of labor. 3. Group B Streptococcus Neg. PROCEDURE: Spontaneous vaginal delivery and repair of second degree laceration. SURGEON: Thais Pérez MD. SALES ACCOUNT COORDINATOR: None. QUANTITATIVE BLOOD LOSS: 256 mL. COMPLICATIONS: None. PLACENTA: Spontaneous and intact with a 3-vessel cord. DISPOSITION: Stable to labor and delivery. DESCRIPTION: The patient pushed well and brought the head to in OA position. The infant's head was allowed to deliver with contraction force and no further active pushing, with the perineum protected during this time. There was a tight nuchal cord which was clamped at cut at the perineum. The left shoulder was anterior. The shoulders and body delivered without any difficulty, and the infant was placed on the maternal abdomen. It was vigorous and moving all extremities, and making respiratory efforts. The cord was doubly clamped by the MD and then cut by the FOB. The placenta delivered spontaneously and was noted to be intact and with a 3VC. The cervix, vagina and perineum were examined and were found to have a second degree which was infiltrated with 1% plain lidocaine 10cc and then repaired in running locked manner with vicryl suture. The fundus was firm and lochia minimal immediately after delivery. [facility] Vaginal Delivery Charge Vaginal Delivery Codes: 43664 global code for the antepartum, delivery, and post-
[2025-03-11] MEDS: OXYTOCIN 30 UNITS/NSS 30 UNITS/500 ML BAG IV PRN (10:40)
[2025-03-11] MEDS: LIDOCAINE 1% LOCAL 20 ML VIAL INFIL PRN (10:40)
[2025-03-11] MEDS ORDERED: OXYTOCIN 30 UNITS/NSS 30 UNITS/500 ML BAG IV PRN (11:46)
[2025-03-11] MEDS ORDERED: ACETAMINOPHEN 325 MG TAB PO PRN (11:46)
[2025-03-11] MEDS ORDERED: HYDROCORTISONE ACETATE 25 MG SUPP PR PRN (11:46)
[2025-03-11] MEDS: BENZOCAINE 20% SPRY 85 APPLN/85 GM CAN EXT PRN (12:03)
[2025-03-11] MEDS: IBUPROFEN 600 MG TAB PO PRN (12:42)
[2025-03-11] MEDS: DOCUSATE SODIUM 100 MG CAP PO SCH (20:53)
[2025-03-12 04:39] VITALS: RESP 18
--- NOTE | 2025-03-12 05:38 | Obstetrical Progress Note ---
Date of Service March 12, 2025 Assessment & Plan (1) examination following vaginal delivery: (2) Group B streptococcus urinary tract infection affecting : (3) Breech presentation successfully converted to cephalic presentation, delivered: Plan 35 y/o ppd #1 s/p . complicated by GBS(+) and breech position where baby self-verted feeling well this morning. vitals stable routine post- care encourage ambulation pain well controlled AM labs pending, however patient is hemodynamically stable Anticipate home discharge today with plan to f/u with Dr. Pérez in 6 weeks. Admission and Anticipated Discharge Date Admission Date: March 10, 2025 Supervising Physician Co-Signing Physician Notes Resident Physician Supervision Note: I interviewed and examined the patient. Discussed with Dr. Ramos and agree with findings and plan as documented in the note. Any exceptions or clarifications are listed here: [ ] Documented By: Thais Pérez MD, FACOG, MSCP Subjective 35 y/o ppd #1 s/p . complicated by GBS(+) and breech position, however baby self-verted prior to ECV. Ambulation: ambulating normally Voiding: no voiding problems Passing Gas:: Yes Diet Tolerance:: regular diet Lochia:: Small Feeding Type:: breast Current Pain Level: minimal Resting comfortably this AM in NAD. Denies HERNANDEZ, CP, SOB, N/V/D, LE pain/swelling. Review of Systems Constitutional: as above Physical Exam Physical Exam: General: patient resting comfortably, NAD, non-toxic in appearance, A&Ox4, answers questions appropriately. Skin: warm, dry, intact HEENT: NC/AT, anicteric sclera, conjunctiva without injection, moist mucus membranes. Heart: +S1/S2, regular, no m/r/g Lungs: equal air entry bilaterally, no rales/rhonchi/wheezes Abd: +BS, soft, NT/ND, uterine fundus firm at umbilicus Ext: warm, no clubbing/cyanosis or edema, Dorian's neg. Neuro: no focal neurologic deficits, moving all extremities. Results & Data Vital Signs (Past 12 Hours) Vital Signs Temp Pulse Resp BP Pulse Ox O2 Del Method 03/12/25 04:38 36.7 C 85 18 123/77 97 Room Air 03/11/25 22:52 36.4 C L 88 16 124/76 98 Room Air 03/11/25 18:57 36.6 C 82 16 127/84 99 Room Air
[2025-03-12 07:08] LABS: Hematocrit (blood only) 27.2 % (37.0-47.0); Hemoglobin 9.3 g/dL (12.0-16.0); Mean Corpuscular Hemoglobin 29.2 pg (25.0-34.0); Mean Corpuscular Volume 85.3 fL (80.0-100.0); Platelet Count 177 K/uL (130-400); RDW Standard Deviation 41.3 fL (36.4-46.3); Red Blood Count 3.19 M/uL (4.20-5.40); White Blood Count 14.52 K/ul (4.8-10.8)
[2025-03-12] MEDS: DIPHTHER/TETAN/PERTUS Vaccine (Tdap, Adol/Adult) 0.5mL IM ONE (07:09)
[2025-03-12] MEDS: PRENATAL VITAMIN 1 TAB PO SCH (08:07)
[2025-03-12 09:01] VITALS: BP 117/72; PULSE 82; TEMP 98.2; O2SAT 98
== END 2025-03-12 13:15 | disposition home or self-care (01) | DRG 807 ==
LOC: 4S1 18:43 → 4E2 03-11 12:35